=== PATIENT | male | born 1975 | race American Indian/Alaskan Native ===

== ENCOUNTER 2018-08-14 11:25 | Emergency (ER) | payer SELFPAY ==
[~2018-08-14] VITALS: Ht 170.2 cm; Wt 70.3 kg
[2018-08-14] MEDS ORDERED: NORCO 5-325 TA1 EACH PO (12:54)
[2018-08-14] MEDS ORDERED: PRED FORTE1 ML OPTH (12:54)
== END 2018-08-14 13:20 | disposition home or self-care (01) ==
LOC: ED 11:25
DX: H20.9 Unspecified iridocyclitis (principal)
CPT/HCPCS: 99283

== ENCOUNTER 2021-08-23 13:16 | Emergency (ER) | payer OTHER ==
[~2021-08-23] VITALS: Ht 170.2 cm; Wt 70.3 kg
[~2021-08-23 13:16] MED LIST: NORCO 5-325 TA1 EACH PO; PRED FORTE1 ML OPTH
== END 2021-08-23 15:40 | disposition home or self-care (01) ==
LOC: ED 13:16
DX: R11.2 Nausea with vomiting, unspecified (principal); F12.90 Cannabis use, unspecified, uncomplicated; R10.9 Unspecified abdominal pain
CPT/HCPCS: 80053; 83690; 85025; 96374; 99284-25; J1790

== ENCOUNTER 2021-11-25 06:10 | Day surgery (SDC) | payer OTHER ==
[~2021-11-25] VITALS: Ht 170.2 cm; Wt 75.8 kg
[~2021-11-25 06:10] MED LIST changes: +IBUPROFEN200 M1 PO; +TYLENOL325 MG PO
--- NOTE | 2021-11-25 09:17 | NUR ---
11/25/21 0917 Jessica Bueno 0912 PT ARRIVED PACU ON 3L VIA NC, VSS. PT ASLEEP AND SNORING NOTED. PT WAKES TO TACTILE STIMULI AND DEEP BREATHING ENCOURAGED OFF AND ON. PT EASILY FALLS BACK TO SLEEP.
--- NOTE | 2021-11-25 10:16 | NUR ---
AFTER NEG COVID TEST RESULT,I ENTERED PT'S RM. HE IS ALERT, OREINTED AND HERE FOR HIS FIRST EGD. ALL QUESTIONS ASKED ANSWERED. PT'S GIRL FRIEND WILL PICKUP FOLLOWING DC. PT REQUESTED PRAYER-PT IS LOOKING FORWARD TO EATING!
--- NOTE | 2021-11-25 10:31 | NUR ---
PATIENT BACK TO DAYSURGERY ROOM 8, APPEARS TO BE RESTING WITH EYES CLOSED. WHEN VERBAL STIMULI PATIENT OPENS EYES AND RESPONDS. VSS. 02 SATURATION 99% RA. CALL LIGHT WITHIN REACH.
--- NOTE | 2021-11-25 10:56 | NUR ---
WAKES WITH VERBAL STIMULI. STATES READY TO GET DRESSED. TO CALL RIDE. TAKES 15 TO 20 MIN TO GET HERE.
--- NOTE | 2021-11-26 07:24 | OR ---
[facility] [address] [place], [place] [address] Signed DATE OF OPERATION: 11/25/2021 SURGEON: Reinier Clemens MD PREOPERATIVE DIAGNOSES: 1. Chronic varying generalized abdominal pain. 2. Nausea and vomiting. 3. Alcohol, marijuana and soda pop use. POSTOPERATIVE DIAGNOSES: 1. Mild distal/linear esophagitis. 2. Mild diffuse gastroduodenitis. PROCEDURE: EGD with CLOtest and biopsies of the duodenum, pyloric bulb, antrum and GE junction. ESTIMATED BLOOD LOSS: None. INDICATIONS: Christiano is a 45-year-old gentleman who was asked to see me for an upper endoscopy. He happened to be a [place]. He now lives in our area with his girlfriend. Over the last five years, he has had trouble with bearing abdominal pain. It can also be associated with nausea and vomiting. It is hard to know whether it is associated with fatty meals. The pain come right after he eats or could be hours later. His girlfriend had her gallbladder removed and is with him in the office. She is also aware of celiac sprue including gluten sensitivity. Christiano has had two gallbladder ultrasounds now which have been negative. His laboratory work has been negative. His HIDA scan showed his ejection fraction at 100% without reproduction of any symptoms. He even had a CT scan in 2019 and it was negative. However, he does drink alcohol and soda pop on a daily basis. He also uses marijuana quite frequently. The ER doctor of course, spoke with him about cannabis hyperemesis syndrome. He had been to visit his primary care provider. He has been using Inapsine to help nausea. He is not using an H2 john or a proton-pump inhibitor. However, he takes Tums on nearly a daily basis. We had sent him for an upper GI with small-bowel follow-through. That was reviewed with him today and it was unremarkable. In the office, I gave Christiano and his girlfriend a pamphlet on upper endoscopy. We discussed the nature of that test. He understands there is risk including, but not limited to gas bloating, crampy abdominal pain, bleeding, perforation requiring surgery, and missed diagnosis. He also understands the need for IV conscious sedation. He had expressed understanding and wished to proceed. Electronically Signed By: REINIER CLEMENS MD 11/26/21 0724 PATIENT NAME: CHRISTIANO BONNER OPERATIVE REPORT DATE OF : 77 REPORT #: [id number] PHYSICIAN: REINIER CLEMENS MD PCP: STEVAN ESPINOZA MD REPORT IS CONFIDENTIAL AND NOT TO BE RELEASED WITHOUT AUTHORIZATION [facility] [address] [place] [id number] Signed PROCEDURE NOTE: Christiano was taken into our endoscopy suite and placed in a supine semi-recumbent position. The posterior oropharynx was anesthetized with Hurricaine spray. A bite block was utilized for the case. He was given a total of 5 mg of Versed and 100 mcg of fentanyl to cover the case. The adult gastroscope had been introduced and advanced quite readily out into the duodenum itself. The duodenum appeared unremarkable. Biopsies were taken of the duodenum for the history of abdominal pain, as well as concern over possible gluten sensitivity. He did have some mild inflammatory changes in his pyloric bulb and throughout the entire stomach. It appears to be all consistent with his daily alcohol use. There were no ulcerations. We went ahead and took biopsies of the pyloric bulb as well as the antrum for pathologic review. Additional biopsy came out of the antrum for CLOtest. Upon retroflexion of the scope, I really cannot appreciate a true hiatal hernia. Throughout the stomach, the rugal folds were effaced. The scope was then withdrawn up to the GE junction, which was compliant without stricture. There was no gastric or esophageal varices. However, he does have mild to moderate disruption to his Z-line with some linear areas consistent with distal esophagitis. We went ahead and took a biopsy on one of these areas for pathologic review. The middle and upper esophagus were unremarkable. After this, the gas was suctioned out and the gastroscope removed. Christiano tolerated the procedure quite well. RECOMMENDATIONS: I will see Christiano back in my office in 7 to 14 days to review his results. He will be encouraged to cut back on his daily alcohol, soda pop and marijuana use. He might consider Pepcid or a proton-pump inhibitor at least in the short term until his stomach settles down. Reinier Clemens MD ALB/MODL /[id number] cc: [facility] Reinier Clemens MD Electronically Signed By: REINIER CLEMENS MD 11/26/21 0724 PATIENT NAME: CHRISTIANO BONNER OPERATIVE REPORT DATE OF : 77 REPORT #: [id number] PHYSICIAN: REINIER CLEMENS MD PCP: STEVAN ESPINOZA MD REPORT IS CONFIDENTIAL AND NOT TO BE RELEASED WITHOUT AUTHORIZATION [facility] [address] [place], [place] [address] Signed Copies: REINIER CLEMENS MD ~ Electronically Signed By: REINIER CLEMENS MD 11/26/21 0724 PATIENT NAME: CHRISTIANO BONNER OPERATIVE REPORT DATE OF : 77 REPORT #: [id number] PHYSICIAN: REINIER CLEMENS MD PCP: STEVAN ESPINOZA MD REPORT IS CONFIDENTIAL AND NOT TO BE RELEASED WITHOUT AUTHORIZATION
== END 2021-11-25 11:00 | disposition home or self-care (01) ==
LOC: DS 06:10 → OPS 06:10
PROVIDERS: ATTEND Colon & Rectal Surgery
PROC: 0DB78ZX Excision of Stomach, Pylorus, Via Natural or Artificial Opening Endoscopic, Diagnostic (ICD-10-PCS; 2021-11-25)
PROC: 0DB48ZX Excision of Esophagogastric Junction, Via Natural or Artificial Opening Endoscopic, Diagnostic (ICD-10-PCS; 2021-11-25)
PROC: 0DB98ZX Excision of Duodenum, Via Natural or Artificial Opening Endoscopic, Diagnostic (ICD-10-PCS; principal; 2021-11-25 07:55)
DX: K29.50 Unspecified chronic gastritis without bleeding (principal); B96.81 Helicobacter pylori [H. pylori] as the cause of diseases classified elsewhere; R11.2 Nausea with vomiting, unspecified; Z20.822 Contact with and (suspected) exposure to COVID-19
CPT/HCPCS: 87077; 88305; 99153; G0500; J2250; J3010; J7121; U0003

== ENCOUNTER 2022-02-10 13:06 | Emergency (ER) | payer OTHER ==
[~2022-02-10] VITALS: Ht 170.2 cm; Wt 74.8 kg
--- OUTSIDE RECORDS SUMMARY | 2022-02-10 13:14 | XMS ---
PreManage Notification: AYESHA BONNER [employer] Events No recent Security Events currently on file CRITERIA MET - ED - Positive COVID-19 Lab Result - [facility] PROVIDERS There are no care providers on record at this time. [facility] has no Care Guidelines for this patient. [facility] VISIT COUNT (12 MO.) 2 [facility] TOTAL 2 NOTE: Visits indicate total known visits. ED/C VISIT TRACKING (12 MO.) 02/10/2022 13:07 [facility] [place] TYPE: Emergency COMPLAINT: - ABD PAIN 08/23/2021 13:16 [facility] TYPE: Emergency COMPLAINT: - RIGHT SIDE ABD PAIN, VOMITING DIAGNOSES: - Unspecified abdominal pain - Cannabis use, unspecified, uncomplicated - Nausea with vomiting, unspecified INPATIENT VISIT TRACKING (12 MO.) No inpatient visits to display in this time frame [id number]
[2022-02-10] MEDS ORDERED: TUMS200 MG PO (13:22)
[2022-02-10] MEDS ORDERED: PEPCID20 MG PO (13:23)
[2022-02-10] MEDS ORDERED: OMEPRAZOLE20 MG PO (15:50)
[2022-02-10] MEDS ORDERED: ONDANSETRON ODT8 MG PO (15:50)
== END 2022-02-10 16:25 | disposition home or self-care (01) ==
LOC: ED 13:06
DX: K29.00 Acute gastritis without bleeding (principal); Z79.899 Other long term (current) drug therapy
CPT/HCPCS: 36415; 80053; 83690; 85025; 96374; 96375; 99284-25; C9113; J1170; J1790; J2405; J7030